=== PATIENT | male | born 1990 | race Caucasian/White ===

== ENCOUNTER 2019-11-16 20:35 | Emergency (ER) | payer OTHER ==
[~2019-11-16] VITALS: Ht 165.1 cm; Wt 86.2 kg
[2019-11-16 20:50] VITALS: BP 123/79
--- NOTE | 2019-11-16 20:54 | NUR ---
PT AMBULATED TO BED #6
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
[2019-11-16] MEDS ORDERED: IBUPROFEN 400 MG TAB PO STA (23:03)
[2019-11-16] MEDS ORDERED: ACETAMINOPHEN 650 MG/20.3 ML UDC PO ONE (23:05)
--- NOTE | 2019-11-16 23:14 | NUR ---
TRANSFER TO CT VIA W/C.
--- NOTE | 2019-11-16 23:26 | NUR ---
PT RETURNED BACK FROM CT VIA W/C.
[2019-11-17 00:31] VITALS: BP 123/79
--- NOTE | 2019-11-17 00:31 | NUR ---
Patient discharged with v/s stable. Written and verbal after care instructions given and explained. Patient alert, oriented and verbalized understanding of instructions. Ambulatory with steady gait. All questions addressed prior to discharge. ID band removed. Patient advised to follow up with PMD. Rx oF IBUPROFEN AND FLEXERIL given. Patient educated on indication of medication including possible reaction and side effects. Opportunity to ask questions provided and answered.
== END 2019-11-17 00:31 | disposition home or self-care (01) ==
LOC: MED 20:35
DX: M54.2 Cervicalgia (principal); V49.40XA Driver injured in collision with unspecified motor vehicles in traffic accident, initial encounter; Y93.89 Activity, other specified; Y92.89 Other specified places as the place of occurrence of the external cause; Y99.8 Other external cause status
CPT/HCPCS: 70450; 72125; 99284